=== PATIENT | female | born 1945 | race Caucasian/White ===

== ENCOUNTER 2018-03-04 11:14 | Day surgery (SDC) | payer MEDICARE, BC ==
[2018-03-04 12:30] VITALS: BMI 29.9
[2018-03-04 12:39] VITALS: O2SAT 99
[2018-03-04 13:03] LABS: BLOOD UREA NITROGEN 16 mg/dl (7-17); CALCIUM 9.6 mg/dL (8.4-10.2); GFR NON-AFRICAN AMERICAN > 60
[2018-03-04] MEDS ORDERED: Tetracaine 0.5% Ophth 2 ML BOTTLE ONE (14:37)
[2018-03-04] MEDS ORDERED: Povidone Iodine 5% Opht SOLUTION ONE (14:37)
[2018-03-04] MEDS ORDERED: Lidocaine 1% w Epi 1:100,000 Inj ONE ×2 (14:37→15:52)
[2018-03-04] MEDS ORDERED: STERILE IRRIGATING SOLUTION 30 ML IR ONE (14:38)
[2018-03-04] MEDS ORDERED: Midazolam 2 MG/2 ML VIAL ONE ×2 (15:00→15:34)
[2018-03-04] MEDS ORDERED: Dextrose 5%/0.45% NS 1,000 ML IV ONE (15:26)
[2018-03-04] MEDS ORDERED: Lactated Ringer's 1,000 ML IV ONE (15:26)
[2018-03-04] MEDS ORDERED: EPINEPHrine 1 mg/ml (1:1000) Inj ONE (15:49)
[2018-03-04] MEDS ORDERED: Lidocaine 1% 20 MG/2 ML PF AMP ONE ×2 (15:49→15:51)
[2018-03-04] MEDS ORDERED: Dextrose 50% SYRINGE Inj (50 ml) ONE (16:00)
[2018-03-04 16:37] VITALS: RESP 18; TEMP 97.6
[2018-03-04 16:58] VITALS: BP 138/78; PULSE 74
--- NOTE | 2018-03-19 07:44 | CP.SDSHP ---
Same Day Surgery [facility] - Allergies Allergies: Allergies almond Allergy (Verified 03/04/18 12:34) SWELLING Penicillins Allergy (Verified 03/04/18 12:33) RASH Short Stay Discharge - Short Stay Discharge Admitting Diagnosis/Reason for Visit: D31.61 Disposition: HOME/ ROUTINE Additional Instructions (Diet, Activity): Discharge Home. Regular diet. Take medication as directed. Follow-up in office in a.m.
--- NOTE | 2018-04-17 07:11 | OP ---
PROCEDURE DATE: 03/04/2018 PREOPERATIVE DIAGNOSIS: Cyst to the right anterior orbit. POSTOPERATIVE DIAGNOSIS: Cyst to the right anterior orbit. OPERATIVE FINDINGS: Cyst to the right anterior orbit. DESCRIPTION OF PROCEDURE: The patient was prepped and draped in the usual manner for sterile ophthalmic plastic surgery. A linear incision was made over the cystic lesion of the right anterior orbit. The lesion was dissected in total and excised. Hemostasis was obtained with bipolar cautery. After proper hemostasis, the wound was closed with interrupted 6-0 silk suture, antibiotic ointment was applied to the incision site, and the procedure was terminated. The patient was brought to the postanesthesia area with stable vital signs. Frederic Arreola MD
== END 2018-03-04 17:00 | disposition home or self-care (01) ==
LOC: H.OPSURG 11:14
PROVIDERS: ATTEND Ophthalmology
DX: D31.61 Benign neoplasm of unspecified site of right orbit (principal); E11.9 Type 2 diabetes mellitus without complications; I10 Essential (primary) hypertension
CPT/HCPCS: 36415; 67412; 80048; 82948; 88304; 88305; J0171; J2250; J3010; J7042